=== PATIENT | female | born 1955 | race Caucasian/White ===

== ENCOUNTER 2024-05-15 07:16 | Day surgery (SDC) | payer MEDICARE, SELFPAY ==
[2024-05-15] VITALS (8 sets, daily range): BP systolic 91–140; BP diastolic 50–90; PULSE 52–82; RESP 16; TEMP 36.3–36.7; O2SAT 96–99; BMI 23.8
[2024-05-15] MEDS: LIDOCAINE 1% MDV INJECTION (07:20)
[2024-05-15] MEDS: BUPIVACAINE 0.5 %/EPI 1:200K INJECTION (07:20)
--- NOTE | 2024-05-15 08:20 | W.PM.H&PU ---
History & Physical Update History & Physical Update H&P Reviewed and patient assessed: No changes noted
--- NOTE | 2024-05-15 08:21 | PM.ORPRC ---
Procedure Note Date of procedure: 05/15/24 Procedure: PREOPERATIVE DIAGNOSIS: 1. Right carpal tunnel syndrome POSTOPERATIVE DIAGNOSIS: 1. Right carpal tunnel syndrome PROCEDURE: 1. Right open carpal tunnel release SURGEON: Juan Antonio Candelario MD. MOPHEAD TRIMMER AND WRAPPER: Brandi Burrell P.A.-C. An psychology assistant was critical for this case to aid in patient positioning, tissue retraction, limb manipulation/positioning, and closure. ANESTHESIA: Local anesthetic IMPLANTS: None ESTIMATED BLOOD LOSS: 2 mL TOURNIQUET: Not utilized COMPLICATIONS: None INDICATIONS: The patient is a pleasant 69-year-old female with history of right hand numbness and tingling secondary to carpal tunnel syndrome. Symptoms were not improving with conservative treatment, and patient elected to proceed with surgical intervention consisting of right carpal tunnel release. Prior to surgery, the risks and benefits of the procedure were discussed with patient, all questions were answered, and informed consent was obtained. DESCRIPTION OF PROCEDURE: Patient was seen preoperatively and operative site was marked. Subcutaneous tissues overlying the right carpal tunnel were injected with a combination of 1% lidocaine with epinephrine and 0.5% bupivacaine. Patient was then brought to the operating room and placed in the supine position on the OR table. A tourniquet was placed on the patient's right arm but was not used during course of procedure. The right upper extremity was prepped and draped in usual sterile fashion. A surgical time-out was performed confirming patient name, procedure, and location. A skin incision measuring approximately 3-4 cm was made in line with the ring finger extending from the distal wrist flexion crease to Weaver's cardinal line. Bipolar electrocautery was used to achieve hemostasis. Blunt dissection was used to dissect through subcutaneous tissues and palmar fascia. Transverse carpal ligament was identified and was sharply incised proximally with care taken to protect the underlying median nerve. The transverse carpal ligament was then sharply divided along its ulnar border using tenotomy scissors and a hoopa blade with care taken to protect the underlying median nerve. Once the transverse carpal ligament was divided, the antebrachial fascia was released proximally. The wound was then irrigated with normal saline. The skin incision was closed with 4-0 nylon horizontal mattress sutures, and a sterile dressing was applied. Patient was then transferred to the recovery room in stable condition. POSTOPERATIVE PLAN: 1. Patient will be discharged to home day of surgery. 2. Ice and elevation as needed for pain and swelling. 3. Tylenol and/or ibuprofen as needed for pain. 4. They were given instructions for wound care and finger range of motion exercises. 5. Return to the clinic for follow-up evaluation in 10-14 days for wound check and suture removal.
[2024-05-15] MEDS: BACITRACIN OINTMENT BULK TUBE 1 APPLIC TOPICAL (08:41)
[2024-05-15] MEDS: ETHYL CHLORIDE 1 APPLICATION 1 APPLIC TOPICAL (08:44)
--- NOTE | 2024-05-15 08:44 | SUR.PREOP ---
SAME DAY SURGERY LOCAL INJECTION SITE VERIFICATION WAS PERFORMED BY SURGEON/PA AND PATIENT PRIOR TO LOCAL ANESTHETIC BEING INJECTED TO OPERATIVE SITE.
== END 2024-05-15 09:23 | disposition home or self-care (01) ==
LOC: OR 07:16
PROVIDERS: PCP Family Medicine; Visit Provider Orthopaedic Surgery
PROC: (CPT 64721; principal; 2024-05-15 08:30)
DX: G56.01 Carpal tunnel syndrome, right upper limb (principal)
CPT/HCPCS: 64721; J2003; J3490

== ENCOUNTER 2024-11-30 10:24 | Outpatient (CLI) | payer MEDICARE, OTHER, SELFPAY ==
[2024-12-03 17:18] LABS: HSV 1 Subtype by PCR Not Detected; HSV 2 Subtype by PCR Not Detected; Herpes Simplex Subtype Source Vesicle
== END 2024-11-30 10:25 | disposition home or self-care (01) ==
PROVIDERS: PCP Family Medicine; Visit Provider Physician Assistant Surgical
DX: K12.1 Other forms of stomatitis (principal)
CPT/HCPCS: 87529

== ENCOUNTER 2025-04-28 09:25 | Outpatient (CLI) | payer MEDICARE, OTHER, SELFPAY | END 2025-04-28 09:26 | disposition home or self-care (01) | PROVIDERS: PCP Family Medicine; Visit Provider Family Medicine | DX: E78.5 Hyperlipidemia, unspecified (principal); R53.83 Other fatigue; R68.2 Dry mouth, unspecified; Z13.29 Encounter for screening for other suspected endocrine disorder | CPT/HCPCS: 80061; 84443; 86235 ==